=== PATIENT | male | born 1980 | race Caucasian/White ===

== ENCOUNTER 2025-05-19 06:55 | Emergency (ER) | payer BC, OTHER ==
[~2025-05-19] VITALS: Ht 167.6 cm; Wt 70.3 kg
[2025-05-19] MEDS ORDERED: KETOROLAC TROMETHAMINE 15 MG/ML VIAL ONE (07:35)
[2025-05-19 07:38] LABS: PLATELET COUNT (AUTO) 213 K/uL (150-450); RED BLOOD CELL COUNT(AUTO) 5.08 MIL/uL (4.5-6.0); RED CELL DISTRIBUTION WIDTH 13.6 % (11.5-15.0); WHITE BLOOD COUNT (AUTO) 9.0 K/uL (4.3-11.0)
[2025-05-19] MEDS: IV NS 0.9% 1,000 ML BAG IV ONE (07:40)
[2025-05-19] MEDS: KETOROLAC TROMETHAMINE 15 MG/ML VIAL IV ONE (07:41)
[2025-05-19 07:48] LABS: CALCIUM, SERUM 8.3 mg/dL (8.5-10.1); CREATININE 1.1 mg/dL (0.6-1.3); SODIUM SERUM 141 mmol/L (136-145); UREA NITROGEN, BLOOD 9 mg/dL (7-18)
[2025-05-19 07:56] LABS: ASPARTATE AMINOTRANSFERASE 26 U/L (15-37); TOTAL PROTEIN, SERUM 7.4 g/dL (6.4-8.2)
[2025-05-19 09:24] LABS: APPEARANCE,URINE SLIGHTLY CLOUDY (CLEAR); BLOOD, URINE 3+ Ery/uL (NEGATIVE); LEUKOCYTE ESTERASE ,URINE NEGATIVE (NEGATIVE); NITRITE, URINE NEGATIVE (NEGATIVE); UGLUCOSE NEGATIVE (NEGATIVE)
[2025-05-19 09:46] LABS: ADD URINE CULTURE YES; SQUAMOUS EPITHELIAL CELL,UR Moderate /HPF (None Seen)
[2025-05-19] MEDS ORDERED: TAMS-12 PO (11:39)
[2025-05-19] MEDS ORDERED: KETO10TA2 PO (11:39)
[2025-05-19] MEDS: TAMSULOSIN 0.4 MG CAP.SR.24H PO ONE (12:22)
[2025-05-19 12:24] VITALS: BP 131/72; TEMP 98; O2SAT 98
== END 2025-05-19 12:24 | disposition home or self-care (01) ==
LOC: ER 07:07
DX: N20.0 Calculus of kidney (principal); I10 Essential (primary) hypertension; J45.909 Unspecified asthma, uncomplicated
CPT/HCPCS: 99285; 74176; 96374; 96361; 93005; 85025; 80048; 87086; 83690; 80076; 81001; 36415; 84484; J1885; J7030